=== PATIENT | female | born 1960 | race Caucasian/White ===

== ENCOUNTER 2020-08-17 11:02 | Emergency (ER) | payer OTHER ==
[~2020-08-17] VITALS: Ht 165.1 cm; Wt 70.3 kg
[~2020-08-17 11:02] MED LIST: ASTEPRO205.5 MCG/ NAS; BONIVA150 MG PO; BOTOX100 UNITS IM; LIPITOR40 MG PO; MAGNESIUM CITR100 MG PO; PETADOLEX 7575 MG PO; QNASL8.7 GM NAS; TOPAMAX100 MG PO; ZOMIG5 MG PO
[2020-08-17] MEDS ORDERED: ATORVASTATIN CA80 MG (11:22)
[2020-08-17] MEDS ORDERED: ESTRADIOL42.5 GM (11:23)
[2020-08-17] MEDS ORDERED: BACLOFEN10 MG (11:24)
[2020-08-17] MEDS ORDERED: VENLAFAXINE HCL75 M1 (11:24)
[2020-08-17] MEDS ORDERED: IBANDRONATE SO150 MG (11:24)
--- NOTE | 2020-08-18 07:08 | EKG ---
[facility] [address] [facility] [place] [address] Signed Normal sinus rhythm Normal ECG No previous ECGs available Confirmed by SYLVESTER DALE MD ([id number]) on 08/18/2020 7:08:32 AM Electronically Signed By: SYLVESTER DALE MD 08/18/20 0708 PATIENT NAME: RAFAELA TELLES Electrocardiogram DATE OF : 64 PHYSICIAN: SYLVESTER DALE MD REPORT #: [id number] REPORT IS CONFIDENTIAL AND NOT TO BE RELEASED WITHOUT AUTHORIZATION
== END 2020-08-17 15:08 | disposition short-term general hospital (02) ==
LOC: ED 11:02
DX: I21.4 Non-ST elevation (NSTEMI) myocardial infarction (principal); G43.909 Migraine, unspecified, not intractable, without status migrainosus; E78.00 Pure hypercholesterolemia, unspecified; Z88.8 Allergy status to other drugs, medicaments and biological substances; Z88.5 Allergy status to narcotic agent; Z79.899 Other long term (current) drug therapy
CPT/HCPCS: 71045; 80053; 81001; 83735; 84484; 85025; 85379; 85610; 85730; 93005; 93010; 96374; 96376; 99285-25; J1644

== ENCOUNTER 2023-02-25 07:54 | Day surgery (SDC) | payer OTHER ==
[~2023-02-25] VITALS: Ht 165.1 cm; Wt 84.5 kg
[~2023-02-25 07:54] MED LIST changes: +ASPIRIN81 MG PO; +ATORVASTATIN CA80 MG; +BACLOFEN10 MG; +BLACK COHOSH200 MG PO; +CLOPIDOGREL75 MG PO; +DAILY VALUE1 EACH PO; +ESTRADIOL42.5 GM; +EZETIMIBE10 MG PO; +IBANDRONATE SO150 MG; +IRON325 M1 PO; +METOPROLOL TART50 MG PO; +OMEPRAZOLE20 MG PO; +PROCHLORPERAZIN10 MG PO; +VENLAFAXINE HCL75 M1; +VITAMIN D310 MC4 PO; +ZITHROMAX250 MG PO
[2023-02-25 08:24] VITALS: BP 102/73
[2023-02-25] MEDS ORDERED: REPATHA SU140 MG/1 M SUB-Q (08:27)
[2023-02-25] MEDS ORDERED: CETIRIZINE HCL10 MG PO (08:30)
[2023-02-25 08:31] VITALS: BP 111/54
[2023-02-25] MEDS ORDERED: CALCIUM 600 MG1 EA10 PO (08:31)
--- NOTE | 2023-02-25 10:26 | NUR ---
02/25/23 1026 Nga Neville 1020-PT TO PACU IN LL POSITION. EYES OPEN BUT PT REMAINS DROWSY. BREATHING EASY AND UNLABORED. SPO2 >95% ON ROOM AIR. PT DENIES NAUSEA PAIN AND DIZZINESS. PT EDUCATED ABOUT POC FOR PACU AND ENCOURAGED TO PASS GAS. 1026-PT RESTING EYES CLOSED. BREATHING EASY AND UNLABORED. SPO2 >95% ON ROOM AIR.
[2023-02-25 11:03] VITALS: BP 121/63
--- NOTE | 2023-02-26 07:32 | OR ---
[facility] [address] [place], [place] [address] Signed DATE OF OPERATION: 02/25/2023 SURGEON: Luis Hernandez MD PREOPERATIVE DIAGNOSIS: Personal history of colonic polyps in 2015 at age 53. POSTOPERATIVE DIAGNOSIS: 3 mm polyp at 4 cm in rectum. PROCEDURE: Colonoscopy with hot biopsy. ESTIMATED BLOOD LOSS: None. INDICATIONS: Merle is a 62-year-old female who has been suffering with rather significant hypercholesterolemia since her 20s. She is on actually three of her medications. She has developed somewhat premature coronary artery disease. She underwent a cardiac cath, but no percutaneous intervention was undertaken including stents. She had been on Plavix and aspirin for quite some time. She has now discontinued the Plavix and remains on her aspirin. She follows along closely with her cook mess who felt she was low risk for her procedure. I had helped Merle back in 2014 at age 53 for her initial screening colonoscopy. She had a small 4 mm tubular adenomatous polyp removed along with a hyperplastic polyp. She had done well with Versed and fentanyl at that time. She is now in the five year plan. She has no family history of colon cancer or polyps. She had returned to the office for followup colonoscopy. She has no lower GI complaints. I gave her a pamphlet on colonoscopy. She recalls the nature of the test. There is risk including, but not limited to gas bloating, crampy abdominal pain, bleeding, perforation requiring surgery, and missed diagnosis. We also reviewed the written instructions for her bowel prep line by line. She held the aspirin just three days prior to the procedure. She took her other medications. She recalls the need for IV conscious sedation. She told me her cousin would take her home afterwards. She had expressed understanding and wished to proceed. DESCRIPTION OF PROCEDURE: Merle was taken into our endoscopy suite and placed in the left lateral decubitus position. She was given IV sedation with 4 mg of Versed and 125 mcg of fentanyl. A digital rectal exam was performed and this was unremarkable. There were no external Electronically Signed By: LUIS HERNANDEZ MD 02/26/23 0732 PATIENT NAME: MERLE TELLES OPERATIVE REPORT DATE OF : 64 REPORT #: [id number] PHYSICIAN: LUIS HERNANDEZ MD PCP: RYANNE WHALEN PAC REPORT IS CONFIDENTIAL AND NOT TO BE RELEASED WITHOUT AUTHORIZATION [facility] [address] [place], [place] [address] Signed hemorrhoids. She had good sphincter tone. There were no masses. The adult colonoscope was introduced and advanced all around into the cecum under direct visualization of the camera without difficulty. Her prep was quite excellent. We could easily see the appendiceal orifice and the ileocecal valve. The scope was then slowly withdrawn. We took several pictures throughout for photodocumentation. There was no diverticulosis. Just above her anal canal, there is a very tiny 3 mm polyp. It was easily removed with the help of hot biopsy forceps. Upon retroflexion of the scope, she has several tiny internal anal skin tags. After this, the gas was suctioned out and the colonoscope removed. Merle tolerated the procedure quite well. RECOMMENDATIONS: I will see Merle back in my office in 7 to 14 days to review her results. I suspect she will stay on the five year plan. MD GONZÁLEZ Crook/AYANAL /[id number] cc: MYRIAM Pressley MD Mershed Alsamara, MD Copies: LUIS HERNANDEZ MD, MERSHED MD ~ Electronically Signed By: LUIS HERNANDEZ MD 02/26/23 0732 PATIENT NAME: MERLE TELLES OPERATIVE REPORT DATE OF : 64 REPORT #: [id number] PHYSICIAN: LUIS HERNANDEZ MD PCP: RYANNE WHALEN PAC REPORT IS CONFIDENTIAL AND NOT TO BE RELEASED WITHOUT AUTHORIZATION
--- NOTE | 2023-02-26 16:43 | PATH ---
[facility] [address] [facility] [place], [place] [address] Signed SPECIMEN(S): A RECTAL POLYP AT 4 CM SPECIMEN SOURCE: A. RECTAL POLYP AT 4 CM CLINICAL HISTORY: History of polyps FINAL PATHOLOGIC DIAGNOSIS: Rectal polyp at 4 cm: - Hyperplastic polyp (one fragment). JVR:jamir MICROSCOPIC EXAMINATION: Histologic sections of all submitted blocks are examined by light microscopy. These findings, together with the gross examination, support the pathologic diagnosis. GROSS DESCRIPTION: The specimen, labeled and designated "Dennis, rectal polyp at 4 cm," is received in formalin and consists of one saeed soft tissue fragment, 0.3 cm. Entirely submitted in (A1). VB (under the direct supervision of a pathologist) The Gross Description was prepared using a voice recognition system. The report was reviewed for accuracy; however, sound-alike word errors, addition and/or deletions may occur. If there is any question about this report, please contact Client Services. PERFORMING LABORATORY: Technical component was performed by [facility], [address] [place] [id number] (CLIA# [id number]). Professional interpretation was performed by [facility], [address] [place] [id number] (CLIA#: [id number]). Diagnostician: Oli Briseno MD Pathologist Electronically Signed 02/26/2023 Copies: PATIENT NAME: RAFAELA TELLES PATHOLOGY DATE OF : 64 REPORT #: [id number] PHYSICIAN: [facility] PCP: RYANNE WHALEN PAC REPORT IS CONFIDENTIAL AND NOT TO BE RELEASED WITHOUT AUTHORIZATION [address] [place], [place] [address] Signed ~ PATIENT NAME: RAFAELA TELLES PATHOLOGY DATE OF : 64 REPORT #: [id number] PHYSICIAN: [facility] PCP: RYANNE WHALEN PAC REPORT IS CONFIDENTIAL AND NOT TO BE RELEASED WITHOUT AUTHORIZATION
== END 2023-02-25 11:10 | disposition home or self-care (01) ==
LOC: OPS 07:54 → DS 07:54 → OPS 10:30
PROVIDERS: ATTEND Colon & Rectal Surgery
PROC: 0DBP8ZZ Excision of Rectum, Via Natural or Artificial Opening Endoscopic (ICD-10-PCS; principal; 2023-02-25 09:45)
DX: Z12.11 Encounter for screening for malignant neoplasm of colon (principal); Z86.010 Personal history of colon polyps; E78.00 Pure hypercholesterolemia, unspecified; E66.9 Obesity, unspecified; Z68.30 Body mass index [BMI] 30.0-30.9, adult; K62.1 Rectal polyp
CPT/HCPCS: 99153; G0500; J2250; J3010; J7121